=== PATIENT | male | born 1970 | race Caucasian/White ===

== ENCOUNTER 2021-03-20 16:10 | Emergency (ER) | payer BC ==
[2021-03-20 16:18] VITALS: TEMP 97.7
[2021-03-20] MEDS ORDERED: KETOROLAC 15 MG/ML 1 ML VIAL IVP STA (16:58)
[2021-03-20] MEDS ORDERED: ASPIRIN 81 MG PO STA (16:58)
[2021-03-20 17:19] LABS: Basophils # (A) 0.1 k/uL (0-0.2); Basophils % (A) 1 %; Eosinophils # (A) 0.3 k/uL (0-0.7); Eosinophils % (A) 4 %; HCT 45.4 % (39.0-53.0); HGB 15.3 gm/dL (13.0-17.5); Lymphocytes # (A) 1.3 k/uL (1.0-4.8); Lymphocytes % (A) 17 %; MCHC 33.7 g/dL (31.0-37.0); Mean Platelet Volume 8.1; Monocytes # (A) 0.4 k/uL (0-1.0); Monocytes % (A) 5 %; Neutrophils # (A) 5.3 k/uL (1.3-7.7); Neutrophils % (A) 71 %; Platelet Count 211 k/uL (150-450); RBC 5.28 m/uL (4.30-5.90); RDW 13.2 % (11.5-15.5); WBC 7.5 k/uL (3.8-10.6)
[2021-03-20 17:29] LABS: Albumin 4.3 g/dL (3.5-5.0); Calcium 9.8 mg/dL (8.4-10.2); Total Bilirubin 0.3 mg/dL (0.2-1.3); Total Protein 6.8 g/dL (6.3-8.2)
[2021-03-20 17:31] LABS: Potassium 4.3 mmol/L (3.5-5.1)
--- NOTE | 2021-03-20 17:32 | XR ---
EXAMINATION TYPE: XR chest 2V DATE OF EXAM: 03/20/2021 CLINICAL HISTORY: Chest Pain. TECHNIQUE: Frontal and lateral view of the chest. COMPARISON: 07/21/2011 FINDINGS: Low lung volumes. The cardiomediastinal silhouette is within normal limits for size. Pulmo nary vasculature is normal. There is no focal air space opacity. No pleural effusion. No pneumothora x seen. No acute displaced osseous fracture. IMPRESSION: No acute cardiopulmonary process.
--- NOTE | 2021-03-20 17:52 | ED ---
General Adult HPI - General Chief complaint: Chest Pain Stated complaint: Chest Pain Time Seen by Provider: 03/20/21 16:28 Source: patient Mode of arrival: ambulatory Limitations: no limitations - History of Present Illness Initial comments: Patient is a 51-year-old male with past medical history remarkable for chronic neck pain with numbness over his right shoulder who presents emergency Department complaining of a multiple day history of chest pain. Patient states he was golfing over the weekend 4 days ago. Since then for the last 3 days he has been having chest tightness across both sides of his chest, and today noticed some left-sided chest pain as well as right-sided chest pain that was slightly different point sensation. He states the pain is not worse with movements. He denies knowing any palliative or provocative factors for the pa in. States it does improve but then sometimes comes back and is uncertain why. Does endorse is somewhat worse with inspiration when the pain is present. Denies any cough, fevers. Patient was vaccinated for COVID-19 and had COVID-19 previously. Denies abdominal pain, nausea, vomiting. He has no other acute complaints at this time including any lightheadedness. Denies any calf swelling. There is any history of blood clots. Patient presents for his chest pain of unknown etiology. - Related Data Home Medications Medication Instructions Recorded Confirmed ALPRAZolam [Xanax] 0.5 mg PO TID PRN 03/20/21 03/20/21 Albuterol Inhaler [Ventolin Hfa 2 puff INHALATION RT-Q6H PRN 03/20/21 03/20/21 Inhaler] Albuterol Nebulized [Ventolin 2.5 mg INHALATION RT-Q4H PRN 03/20/21 03/20/21 Nebulized] Gabapentin 600 mg PO TID 03/20/21 03/20/21 Ibuprofen [Motrin] 800 mg PO Q8H PRN 03/20/21 03/20/21 Loratadine-Pseudoeph 5-120 mg 0.5 tab PO BID 03/20/21 03/20/21 [Claritin-D 12 Hour] Melatonin 5 mg PO HS PRN 03/20/21 03/20/21 Pantoprazole [Protonix] 40 mg PO DAILY PRN 03/20/21 03/20/21 allopurinoL [Zyloprim] 200 mg PO DAILY 03/20/21 03/20/21 methocarbamoL [Methocarbamol] 750 mg PO TID 03/20/21 03/20/21 Previous Rx's Medication Instructions Recorded Methocarbamol [Robaxin-750] 1,500 mg PO TID 7 Days #42 tablet 03/20/21 Allergies Allergy/AdvReac Type Severity Reaction Status Date / Time Penicillins Allergy Unknown Verified 03/20/21 17:46 Childhood shellfish derived [Shellfish] Allergy Anaphylaxis Verified 03/20/21 17:46 Review of Systems ROS Statement: Those systems with pertinent positive or pertinent negative responses have been documented in the HPI. Review of Systems: CONST: Denies fever EYES: Denies blurry vision ENT: Denies nasal congestion C/V: Endorses chest RESP: Denies shortness of breath GI: Denies abdominal pain : Denies dysuria SKIN: Denies rash. MSK: Denies joint pain. NEURO: Denies headache ROS Other: All systems not noted in ROS Statement are negative. Past Medical History Past Medical History: No Reported History History of Any Multi-Drug Resistant Organisms: None Reported Additional Past Surgical History / Comment(s): neck surgery Past Psychological History: No Psychological Hx Reported Smoking Status: Never smoker Past Alcohol Use History: Unable to Obtain Past Drug Use History: None Reported General Exam - General Exam Comments Initial Comments: General: Appears in no acute distress. HEAD: Normal with no signs of head trauma. EYES: PERRLA, EOMI, conjunctiva normal, no discharge. ENT: Hearing grossly intact, normal oropharynx. RESPIRATORY: Clear breath sounds bilaterally. No wheezes, rales, or rhonchi. C/V: Regular rate and rhythm. S1 and S2 auscultated, no edema, peripheral pulses 2+ and intact throughout. Patient's chest pain is nonreproducible on palpation. ABD: Abd is soft, nontender, nondistended EXT: Normal range of motion, no obvious deformity SKIN: No rashes or lesions observed on exposed skin. NEURO: Alert and oriented x 4. Cranial nerves II-XII intact. No focal sensory or strength deficits. Limitations: no limitations Course Vital Signs 03/20/21 03/20/21 16:14 18:05 Temperature 97.7 F Pulse Rate 87 80 Respiratory 20 18 Rate Blood Pressure 164/115 159/115 O2 Sat by Pulse 98 99 Oximetry Medical Decision Making - Medical Decision Making Based on the patient's presentation and physical exam, we'll obtain a cardiac workup including troponin and basic laboratory studies, EKG, chest x-ray. COVID-19 swabobtained. We'll also obtain a d-dimer, as the patient is having nonspecific pleuritic chest pain of unknown etiology. He'll be connected to continue his chronic monitoring while he is here in the department. I will provide him with a dose of aspirin and Toradol. He was in agreement this plan. Patient's EKG revealed normal sinus rhythm and no signs of acute ischemia. Chest x-ray revealed no acute cardio primary process. Laboratory studies were r emarkable for a negative troponin as well as a d-dimer within normal limits. Remainder of his labs are unremarkable. On reevaluation, patient is feeling somewhat improved. I discussed with the patient the results of his normal workup. Heart score is low. I do believe it is safe for him to be discharged home with close follow-up with his primary care physician. He was in agreement this plan. At this time the patient did recall that he did attempt to take Robaxin which did show some improvement in his chest pain. I will provide him with a prescription for more Robaxin. I will provide the patient with a prescription for Robaxin. I instructed the patient to follow up with their PCP in the next 3 days . I explained that the patient should return to the emergency department if they experience any worsening symptoms. Strict return precautions were discussed with the patient. The patient expressed understanding of these instructions. I answered all questions that the patient had. The patient was discharged home in good condition with their prescriptions and follow up information. - Lab Data Result diagrams: 03/20/21 17:03/20/21 17:09 Lab Results 03/20/21 03/20/21 03/20/21 Range/Units 17: 17: 17: WBC 7.5 (3.8-10.6) k/uL RBC 5.28 (4.30-5.90) m/uL Hgb 15.3 (13.0-17.5) gm/dL Hct 45.4 (39.0-53.0) % MCV 86.0 (80.0-100.0) fL MCH 29.0 (25.0-35.0) pg MCHC 33.7 (31.0-37.0) g/dL RDW 13.2 (11.5-15.5) % Plt Count 211 (150-450) k/uL MPV 8.1 Neutrophils % 71 % Lymphocytes % 17 % Monocytes % 5 % Eosinophils % 4 % Basophils % 1 % Neutrophils # 5.3 (1.3-7.7) k/uL Lymphocytes # 1.3 (1.0-4.8) k/uL Monocytes # 0.4 (0-1.0) k/uL Eosinophils # 0.3 (0-0.7) k/uL Basophils # 0.1 (0-0.2) k/uL PT 9.9 (9.0-12.0) sec INR 0.9 (<1.2) APTT 22.9 (22.0-30.0) sec D-Dimer 0.39 (<0.60) mg/L FEU Sodium 139 (137-145) mmol/L Potassium 4.3 (3.5-5.1) mmol/L Chloride 105 (98-107) mmol/L Carbon Dioxide 26 (22-30) mmol/L Anion Gap 8 mmol/L BUN 17 (9-20) mg/dL Creatinine 1.15 (0.66-1.25) mg/dL Est GFR (CKD-EPI)AfAm 87 (>60 ml/min/1.73 sqM) Est GFR (CKD-EPI)NonAf 75 (>60 ml/min/1.73 sqM) Glucose 93 (74-99) mg/dL Calcium 9.8 (8.4-10.2) mg/dL Magnesium 2.0 (1.6-2.3) mg/dL Total Bilirubin 0.3 (0.2-1.3) mg/dL AST 44 (17-59) U/L ALT 64 H (4-49) U/L Alkaline Phosphatase 98 (38-126) U/L Troponin I (0.000-0.034) ng/mL Total Protein 6.8 (6.3-8.2) g/dL Albumin 4.3 (3.5-5.0) g/dL Coronavirus (PCR) (Not Detectd) 03/20/21 03/20/21 Range/Units 17:09 17:09 WBC (3.8-10.6) k/uL RBC (4.30-5.90) m/uL Hgb (13.0-17.5) gm/dL Hct (39.0-53.0) % MCV (80.0-100.0) fL MCH (25.0-35.0) pg MCHC (31.0-37.0) g/dL RDW (11.5-15.5) % Plt Count (150-450) k/uL MPV Neutrophils % % Lymphocytes % % Monocytes % % Eosinophils % % Basophils % % Neutrophils # (1.3-7.7) k/uL Lymphocytes # (1.0-4.8) k/uL Monocytes # (0-1.0) k/uL Eosinophils # (0-0.7) k/uL Basophils # (0-0.2) k/uL PT (9.0-12.0) sec INR (<1.2) APTT (22.0-30.0) sec D-Dimer (<0.60) mg/L FEU Sodium (137-145) mmol/L Potassium (3.5-5.1) mmol/L Chloride (98-107) mmol/L Carbon Dioxide (22-30) mmol/L Anion Gap mmol/L BUN (9-20) mg/dL Creatinine (0.66-1.25) mg/dL Est GFR (CKD-EPI)AfAm (>60 ml/min/1.73 sqM) Est GFR (CKD-EPI)NonAf (>60 ml/min/1.73 sqM) Glucose (74-99) mg/dL Calcium (8.4-10.2) mg/dL Magnesium (1.6-2.3) mg/dL Total Bilirubin (0.2-1.3) mg/dL AST (17-59) U/L ALT (4-49) U/L Alkaline Phosphatase (38-126) U/L Troponin I <0.012 (0.000-0.034) ng/mL Total Protein (6.3-8.2) g/dL Albumin (3.5-5.0) g/dL Coronavirus (PCR) Not Detected (Not Detectd) - EKG Data -: EKG Interpreted by Me EKG Comments: 12-lead Electrocardiogram Interpretation Note EKG was reviewed and interpreted by myself. 12-lead ECG performed at 1702 is interpreted by me as revealing normal sinus rhythm at a rate of 80 beats per mi nute. Mild left axis deviation. NM interval is 140 ms, QRS durations 102 ms, QTc is 417 ms.. There were no ST or T wave abnormalities to suggest myocardial ischemia or injury. R wave progression across the precordium was satisfactory. By my interpretation this EKG is non-diagnostic for acute ischemia. Disposition Clinical Impression: Chest pain of unknown etiology, Chest wall pain Disposition: HOME SELF-CARE Condition: Good Instructions (If sedation given, give patient instructions): Chest Pain (ED), Costochondritis (ED) Prescriptions: Methocarbamol [Robaxin-750] 1,500 mg PO TID 7 Days #42 tablet Is patient prescribed a controlled substance at d/c from ED?: No Referrals: Fortunato Whitney MD [Primary Care Provider] - 1-2 days
[2021-03-20 17:55] LABS: INR 0.9 (<1.2); Partial Thromboplastin Time 22.9 sec (22.0-30.0); Prothrombin Time 9.9 sec (9.0-12.0)
[2021-03-20 18:07] VITALS: BP 159/115; PULSE 80; RESP 18
== END 2021-03-20 18:09 | disposition home or self-care (01) ==
LOC: EC 16:10
DX: R07.89 Other chest pain (principal); Z79.1 Long term (current) use of non-steroidal anti-inflammatories (NSAID); Z79.899 Other long term (current) drug therapy; Z88.0 Allergy status to penicillin; Z86.718 Personal history of other venous thrombosis and embolism
CPT/HCPCS: 36415; 93005; 85379; 80053; 83735; 84484; 85025; 85610; 85730; 87635; 71046; 99285; 96374; J1885